=== PATIENT | male | born 1935 | race Two or more races ===

== ENCOUNTER 2019-01-26 16:57 | Inpatient (IN) | payer MEDICARE, MEDICAID ==
[~2019-01-26] VITALS: Ht 167.6 cm; Wt 66.7 kg
--- NOTE | 2019-01-26 16:57 | NUR ---
PT BIB FROM [facility] FOR FURTHER WORKUP OF AN ABNORMAL CT READING OF CHEST. AAOX4. NO SOB. NOT IN ANY DISTRESS. PATIENT ON ROOM AIR. WILL CONTINUE TO MONITOR.
[2019-01-26] MEDS ORDERED: PROT946L PO (17:41)
[2019-01-26] MEDS ORDERED: BISA10SU61 RC (17:41)
[2019-01-26] MEDS ORDERED: [UNRECOGNIZED DRUG - CODE] OP (17:41)
[2019-01-26] MEDS ORDERED: NA P133E RC (17:41)
[2019-01-26] MEDS ORDERED: LOSA50TA39 PO (17:41)
[2019-01-26] MEDS ORDERED: POLY15DR31 OP (17:41)
[2019-01-26] MEDS ORDERED: OMEP20TA5 PO (17:41)
[2019-01-26] MEDS ORDERED: SENN-175 PO (17:41)
[2019-01-26] MEDS ORDERED: MAGN400O6 PO (17:41)
[2019-01-26] MEDS ORDERED: MULT-439 PO (17:41)
[2019-01-26] MEDS ORDERED: ASPI-605 PO (17:41)
[2019-01-26] MEDS ORDERED: ACET325C5 PO (17:41)
[2019-01-26] MEDS ORDERED: ACET-868 PO (17:41)
[2019-01-26 17:45] LABS: BASOPHILS # (AUTO) 0.2 /CMM (0.0-0.2); BASOPHILS % (AUTO) 2.7 % (0.0-2.0); EOSINOPHILS % (AUTO) 2.9 % (0.0-6.0); HEMATOCRIT 45 % (39-51); HEMOGLOBIN 15.1 g/dL (13.5-17.5); LYMPHOCYTES # (AUTO) 2.1 /CMM (0.8-4.8); LYMPHOCYTES % (AUTO) 30.4 % (20.0-44.0); MEAN CORPUSCULAR HGB CONC 34 g/dl (31.0-36.0); MEAN CORPUSCULAR VOLUME 97 fL (80-96); MONOCYTES # (AUTO) 0.6 /CMM (0.1-1.30); MONOCYTES % (AUTO) 8.7 % (2.0-12.0); NEUTROPHILS # (AUTO) 3.7 /CMM (1.8-8.9); NEUTROPHILS % (AUTO) 55.3 % (43.0-81.0); PLATELET COUNT (AUTO) 205 /CMM (150-450); RED BLOOD CELL COUNT(AUTO) 4.64 MIL/uL (4.5-6.0); WHITE BLOOD COUNT (AUTO) 6.8 K/uL (4.3-11.0)
[2019-01-26 17:55] LABS: CARBON DIOXIDE 27 mmol/L (21-32); CHLORIDE 105 mmol/L (98-107); CREATININE 1.1 mg/dL (0.6-1.3); GLUCOSE 102 mg/dL (74-106); POTASSIUM 4.1 mmol/L (3.5-5.1); SODIUM SERUM 139 mmol/L (136-145); UREA NITROGEN, BLOOD 20 mg/dL (7-18)
--- NOTE | 2019-01-26 18:48 | NUR ---
CALLED FOR MS BED
[2019-01-26] MEDS ORDERED: ACETAMINOPHEN 1000 MG PO PRN (19:00)
[2019-01-26] MEDS ORDERED: MAG HYDROX/AL HYDROX/SIMETH 30 ML UDC PO PRN (19:00)
[2019-01-26] MEDS ORDERED: MAGNESIUM HYDROXIDE 30 ML UDC PO PRN ×2 (19:00)
[2019-01-26] MEDS ORDERED: NA PHOS,M-B/NA PHOS,DI-BA 1 EA ENEMA RC PRN (19:00)
[2019-01-26] MEDS ORDERED: ONDANSETRON HCL/PF 4 MG/2 ML VIAL IVP PRN (19:00)
[2019-01-26] MEDS ORDERED: BISACODYL SUPP (10 MG) 10 MG/SUPP.RECT SUPP.RECT RC PRN (19:00)
[2019-01-26] MEDS ORDERED: HYDROCODONE/APAP 5/325MG 1 EACH TABLET PO PRN (19:00)
[2019-01-26] MEDS ORDERED: ACETAMINOPHEN 325 MG TABLET PO PRN ×2 (19:00)
[2019-01-26] MEDS ORDERED: Z GUARD REMEDY 2 OZ OINT TP PRN (19:00)
[2019-01-26 19:15] LABS: EOSINOPHILS % (MANUAL) 2 % (0-4); LYMPHOCYTES % (MANUAL) 29 % (16-48); MONOCYTES % (MANUAL) 8 % (0-11.0); NEUTROPHILS % (MANUAL) 61 (42-76)
--- NOTE | 2019-01-26 19:25 | NUR ---
ENDORSEMENT RECEIVED FROM MYRA RN, PT IN STABLE CONDITION, NO DISTRESS OF DISCOMFORT
[2019-01-26 20:00] VITALS: BP_SYST 114; BP_SYST 146; BP_DIAS 63; BP_DIAS 78
--- NOTE | 2019-01-26 20:12 | NUR ---
RECIEVED BED 328-2
[2019-01-26 20:30] VITALS: BP 146/78
--- NOTE | 2019-01-26 20:30 | NUR ---
RN MS OPENING NOTES RECEIVED PATIENT VIA GURNEY FROM ER SAFELY TRANSFERRED TO BED, AWAKE ALERT AND ORIENTED X2, NOTED WITH PERIODS OF FORGETFULNESS, RESPIRATIONS EVEN AND UNLABORED WITH EQUAL RISE AND FALL OF CHEST, DENIES ANY SOB OR PAIN AT THIS TIME, IV SITE TO RIGHT AC #20 INTACT AND PATENT , NO REDNESS, NO INFILTRATION PRESENT, BODY ASSESSMENT DONE NOTED WITH BILATERAL GROIN REDNESS, PERINEAL CLEANSED, ORIENTED TO STAFF AND CALL LIGHT AND KEPT WITHIN REACH, BELONGINGS LIST DONE, BED ALARM IN PLACE, BED AT LOWEST POSITION, FLUIDS AND SNACK OFFERED, BELONGINGS LIST DONE, ALL NEEDS ATTENDED AT THIS TIME, WILL CONTINUE TO MONITOR ATTEND TO NEEDS AND CARRY OUT MD ORDERS.
--- NOTE | 2019-01-26 20:42 | NUR ---
MOVED UP TO FLOOR VIA ACLS PROTOCOL
[2019-01-26] MEDS: SENNOSIDES 8.6 MG TABLET PO SCH (21:39)
[2019-01-26 22:24] VITALS: BP 146/78
--- NOTE | 2019-01-27 06:31 | NUR ---
RN MS CLOSING NOTES PATIENT IN BED WITH PERIODS OF SLEEPING AND BEING AWAKE , ALERT AND ORIENTED X2, NOTED WITH PERIODS OF FORGETFULNESS, RESPIRATIONS EVEN AND UNLABORED WITH EQUAL RISE AND FALL OF CHEST, DENIES ANY SOB OR PAIN AT THIS TIME, IV SITE TO RIGHT AC #20 INTACT AND PATENT , NO REDNESS, NO INFILTRATION PRESENT, PERINEAL AREA CLEANSED, CALL LIGHT KEPT WITHIN REACH, BED ALARM IN PLACE, BED AT LOWEST POSITION, PATIENT WAS ABLE TO VOID 580 ML AND X2 VOID THIS SHIFT, ALL NEEDS ATTENDED AT THIS TIME, WILL CONTINUE TO MONITOR, ATTEND TO NEEDS AND ENDORSE TO NEXT SHIFT.NO FURTHER CHANGES NOTED SINCE ADMITTED TO FLOOR.
[2019-01-27 07:31] LABS: BASOPHILS % (AUTO) 0.3 % (0.0-2.0); EOSINOPHILS % (AUTO) 3.3 % (0.0-6.0); HEMATOCRIT 42 % (39-51); HEMOGLOBIN 14.5 g/dL (13.5-17.5); LYMPHOCYTES # (AUTO) 1.9 /CMM (0.8-4.8); LYMPHOCYTES % (AUTO) 29.8 % (20.0-44.0); MEAN CORPUSCULAR HGB CONC 35 g/dl (31.0-36.0); MEAN CORPUSCULAR VOLUME 95 fL (80-96); MONOCYTES # (AUTO) 0.6 /CMM (0.1-1.30); MONOCYTES % (AUTO) 9.5 % (2.0-12.0); NEUTROPHILS # (AUTO) 3.6 /CMM (1.8-8.9); NEUTROPHILS % (AUTO) 57.1 % (43.0-81.0); PLATELET COUNT (AUTO) 199 /CMM (150-450); RED BLOOD CELL COUNT(AUTO) 4.45 MIL/uL (4.5-6.0); WHITE BLOOD COUNT (AUTO) 6.3 K/uL (4.3-11.0)
[2019-01-27 07:54] LABS: CALCIUM, SERUM 8.7 mg/dL (8.5-10.1); CREATININE 0.8 mg/dL (0.6-1.3); MAGNESIUM 1.9 mg/dL (1.8-2.4); PHOSPHORUS 2.5 mg/dL (2.5-4.9); POTASSIUM 3.7 mmol/L (3.5-5.1)
--- NOTE | 2019-01-27 07:57 | NUR ---
MS/RN NOTES PATIENT IN BED WAKE, ALERT AND ORIENTED X1, SHOWS EVEN AND UNLABORED RESPIRATIONS. DENIES ANY SOB OR PAIN AT THIS TIME. IV SITE TO RIGHT AC #20 INTACT AND PATENT. NO REDNESS, NO INFILTRATION PRESENT. ALL NEEDS ATTENDED AT THIS TIME, CALL LIGHT WITHIN REACH, BED ALARM IN PLACE, BED AT LOWEST POSITION. WILL CONTINUE TO MONITOR.
[2019-01-27 08:00] VITALS: BP 133/71
[2019-01-27] MEDS: LOSARTAN POTASSIUM 50 MG TABLET PO SCH (08:23)
[2019-01-27] MEDS: PROSOURCE / PROSTAT (PYXIS) 30 ML UDC PO SCH (08:23)
[2019-01-27] MEDS: MULTIVIT W/MINERALS 1 TAB TABLET PO SCH (08:23)
[2019-01-27] MEDS: POLYVINYL ALCOHOL 15 ML BOTTLE OP SCH ×3 (08:23→17:46)
[2019-01-27] MEDS: PANTOPRAZOLE 40 MG TABLET.DR PO SCH (08:23)
[2019-01-27] MEDS: DICLOFENAC 0.1% OPTH DROPS 5 ML BOTTLE OP SCH ×4 (08:24→21:54)
--- NOTE | 2019-01-27 10:38 | NUR ---
WOUND CARE CONSULT: PT PRESENTS WITH INTACT SKIN. WILL SEE PRN.
[2019-01-27 16:00] VITALS: BP 116/90
--- NOTE | 2019-01-27 18:37 | NUR ---
MS RN NOTES PATIENT IN BED AWAKE ALERT AND ORIENTED X 2 WITH PERIODS OF FORGETFULNESS. RESPIRATION EVEN AND UNLABORED WITH EQUAL RISE AND FALL OF CHEST, ON ROOM AIR. DENIES ANY PAIN OR DISCOMFORT AT THIS TIME. IV SITE RAC 20G SALINE LOCK, INTACT AND PATENT. NO REDNESS, NO INFILTRATION PRESENT. PERINEAL AREA CLEANSED, BM X 2 DURING SHIFT. SITTER BY BEDSIDE. ALL NEEDED ATTENDED AT THIS TIME. BED IN LOW POSITION, LOCKED, CALL LIGHT WITHIN REACH, SAFETY PRECAUTIONS IN PLACE. WILL ENDORSE TO NOC SHIFT NURSE.
--- NOTE | 2019-01-27 19:10 | NUR ---
RN MS OPENING NOTES RECEIVED PATIENT IN BED AWAKE ALERT AND ORIENTED X2, NOTED WITH PERIODS OF FORGETFULNESS, RESPIRATIONS EVEN AND UNLABORED WITH EQUAL RISE AND FALL OF CHEST, DENIES ANY SOB OR PAIN AT THIS TIME, IV SITE TO RIGHT AC #20 INTACT AND PATENT , NO REDNESS, NO INFILTRATION PRESENT, SITTER AT BEDSIDE FOR SAFETY AND FALL PRECAUTIONS, ORIENTED TO STAFF AND CALL LIGHT AND KEPT WITHIN REACH, BED ALARM IN PLACE, BED AT LOWEST POSITION, FLUIDS AND SNACKS OFFERED, ALL NEEDS ATTENDED AT THIS TIME, WILL CONTINUE TO MONITOR ATTEND TO NEEDS.
[2019-01-27 20:00] VITALS: BP 114/63
[2019-01-27] MEDS: SENNOSIDES 8.6 MG TABLET PO SCH (21:54)
--- NOTE | 2019-01-28 06:40 | NUR ---
RN MS CLOSING NOTES PATIENT IN BED AWAKE ALERT AND ORIENTED X2, NOTED WITH PERIODS OF FORGETFULNESS, RESPIRATIONS EVEN AND UNLABORED WITH EQUAL RISE AND FALL OF CHEST, DENIES ANY SOB OR PAIN AT THIS TIME, IV SITE TO RIGHT AC #20 INTACT AND PATENT , NO REDNESS, NO INFILTRATION PRESENT, SITTER AT BEDSIDE FOR SAFETY AND FALL PRECAUTIONS, CALL LIGHT KEPT WITHIN REACH, BED ALARM IN PLACE, BED AT LOWEST POSITION, FLUIDS AND SNACKS OFFERED, ALL NEEDS ATTENDED AT THIS TIME, WILL CONTINUE TO MONITOR ATTEND TO NEEDS AND ENDORSE TO NEXT SHIFT.
--- NOTE | 2019-01-28 08:00 | NUR ---
MS RN OPENING NOTES Received Patient awake and resting in bed. A/O x 1-2. VS stable with no acute distress. Breathing even and unlabored on room air with no respiratory distress. Denies pain. No signs and symptoms of pain. 20g PIV on RAC clean, dry, intact and flushing well. Safety precautions in place. Bed locked and set to lowest position with side rails x 2 up. Sitter at bedside. All needs rendered at this time. Call light within reach. Will continue to monitor.
[2019-01-28] MEDS: LOSARTAN POTASSIUM 50 MG TABLET PO SCH (09:45)
[2019-01-28] MEDS: DICLOFENAC 0.1% OPTH DROPS 5 ML BOTTLE OP SCH ×4 (09:45→21:55)
[2019-01-28] MEDS: POLYVINYL ALCOHOL 15 ML BOTTLE OP SCH ×3 (09:45→17:18)
[2019-01-28] MEDS: PROSOURCE / PROSTAT (PYXIS) 30 ML UDC PO SCH (09:46)
[2019-01-28] MEDS: MULTIVIT W/MINERALS 1 TAB TABLET PO SCH (09:46)
[2019-01-28] MEDS: PANTOPRAZOLE 40 MG TABLET.DR PO SCH (09:47)
--- NOTE | 2019-01-28 19:34 | NUR ---
MS RN CLOSING NOTES Patient resting in bed. A/O x 1-2. VS stable with no acute distress. Breathing even and unlabored on room air with no respiratory distress. Denies pain. No signs and symptoms of pain. 20g PIV on RAC clean, dry, intact and flushing well. Safety precautions in place. Bed locked and set to lowest position with side rails x 2 up. Sitter at bedside. All needs rendered at this time. Call light within reach. Will endorse plan of care to oncoming shift.
--- NOTE | 2019-01-28 19:40 | NUR ---
RN Notes Received patient awake, alert and oriented x2, on room air and tolerated well. Denies sob, pain, nausea and vomiting. IV access on right AC patent and intact. safety measures and fall precaution in place with call light within reach. Kept comfortable in bed. Will continue to monitor.
[2019-01-28 20:00] VITALS: BP 116/61
[2019-01-28] MEDS: SENNOSIDES 8.6 MG TABLET PO SCH (21:57)
[2019-01-28 22:00] VITALS: BP 116/61
[2019-01-29 04:00] VITALS: BP 123/69
--- NOTE | 2019-01-29 07:44 | NUR ---
RN Notes Patient sleep well overnight, no significant change in condition noted. Vital signs stable, afebrile. No signs of distress and discomfort noted. Kept patient clean and dry. All needs attended. Will endorse accordingly.
[2019-01-29] MEDS: DICLOFENAC 0.1% OPTH DROPS 5 ML BOTTLE OP SCH ×3 (08:56→18:12)
[2019-01-29] MEDS: LOSARTAN POTASSIUM 50 MG TABLET PO SCH (08:56)
[2019-01-29] MEDS: POLYVINYL ALCOHOL 15 ML BOTTLE OP SCH ×3 (08:56→18:12)
[2019-01-29] MEDS: MULTIVIT W/MINERALS 1 TAB TABLET PO SCH (08:56)
[2019-01-29] MEDS: PANTOPRAZOLE 40 MG TABLET.DR PO SCH (08:56)
[2019-01-29] MEDS: PROSOURCE / PROSTAT (PYXIS) 30 ML UDC PO SCH (08:57)
[2019-01-29 15:00] VITALS: BP 118/69
[2019-01-29] MEDS ORDERED: CLONIDINE HCL 0.1 MG TABLET PO ONE (15:00)
--- NOTE | 2019-01-29 19:30 | NUR ---
MS MEDICAL RECORD TRANSCRIBER NOTES Patient discharged for [facility] at this time. Patient in stable condition. VS stable with no acute distress. Breathing even and unlabored on room air with no respiratory distress. Denies pain. No signs and symptoms of pain noted. Skin assessment pictures taken and placed in chart. Medication reconciliation and discharge orders reviewed and explained to Patient and son. Patient and son verbalized understanding. All belongings with Patient. Patient will follow up with Dr. Salinas within one week. Patient picked up by [facility]. Report given to Naldo STALLWORTH.
== END 2019-01-29 19:30 | DRG 640 ==
LOC: ER 17:02 → MED 20:14
PROVIDERS: ADMIT Internal Medicine; ATTEND Internal Medicine
DX: E86.0 Dehydration (principal); N17.0 Acute kidney failure with tubular necrosis; G93.41 Metabolic encephalopathy; R91.8 Other nonspecific abnormal finding of lung field; F03.90 Unspecified dementia, unspecified severity, without behavioral disturbance, psychotic disturbance, mood disturbance, and anxiety; E78.5 Hyperlipidemia, unspecified; M10.9 Gout, unspecified; I25.10 Atherosclerotic heart disease of native coronary artery without angina pectoris; K21.9 Gastro-esophageal reflux disease without esophagitis; I10 Essential (primary) hypertension; M19.90 Unspecified osteoarthritis, unspecified site; F09 Unspecified mental disorder due to known physiological condition; Z79.82 Long term (current) use of aspirin
CPT/HCPCS: 36415; 71045-TC; 71250-TC; 80048-TC; 82962-TC; 83735-TC; 84100-TC; 84484-TC; 85025-TC; 85610-TC; 85730-TC; 87081-TC; G0378; J2405